=== PATIENT | female | born 1985 ===

== ENCOUNTER 2017-10-25 10:18 | Emergency (ER) | payer SELFPAY | END 2017-10-25 10:35 | disposition left against medical advice (07) | LOC: ED 10:18 | DX: Z04.3 Encounter for examination and observation following other accident (principal); Z53.21 Procedure and treatment not carried out due to patient leaving prior to being seen by health care provider; Y08.89XA Assault by other specified means, initial encounter; Y93.89 Activity, other specified; Y99.8 Other external cause status; Y92.89 Other specified places as the place of occurrence of the external cause ==